=== PATIENT | male | born 1995 | race Two or more races ===

== ENCOUNTER 2024-05-29 16:49 | Day surgery (SDC) | payer BC, SELFPAY ==
[2024-05-29 16:50] VITALS: BMI 33.4
[2024-05-29 16:57] VITALS: BP 135/87; PULSE 93; RESP 16; TEMP 37.1; O2SAT 96
--- NOTE | 2024-05-29 17:02 | XR_ITS ---
Examination: CT abdomen with intravenous contrast CT pelvis with intravenous contrast 2-D coronal reconstructions 2-D sagittal reconstructions Date and time of exam:May 29, 2024 1858 hrs. Indications: Onset right lower abdominal pain beginning 2 days ago. CTDI: vol (mGy) 10.1 DLP: (mGycm) 690 Technique: Multiple axial sections of the abdomen and pelvis have been obtained. 64 slice high-resolution scanner used. 3 mm axial sections have been obtained, post intravenous injection 60 cc [id number] 2-D sagittal, coronal reconstructions obtained. Low dose protocols were performed. One or more of the following dose reduction techniques were used; automated exposure control, adjustment of the mA and/or KV according to patient size, use of iterative reconstruction technique. Findings: Diffuse fatty infiltration throughout the liver No gallstones No pancreatic or adrenal mass Spleen not enlarged No renal or ureteral calculi, no hydronephrosis Enlarged inflamed fluid-filled retrocecal appendix No pelvic abscess Contracted urinary bladder Impression: Acute appendicitis Negative for pelvic abscess
--- NOTE | 2024-05-29 17:02 | PD.EDRME ---
Rapid Medical Screening Exam RME Arrival date/time: 05/29/24 16:49 29-year-old male presents to the emergency department complaint of right lower quadrant abdominal pain and nausea ongoing for last 2 days Chief Complaint: Abdominal Pain Time Seen by Provider: 05/29/24 18:11 Vital signs: Vital Signs Temperature 98.7 F 05/29/24 16:57 Pulse Rate 93 05/29/24 16:57 Respiratory Rate 16 05/29/24 16:57 Blood Pressure 135/87 H 05/29/24 16:57 Pulse Oximetry (%) 96 05/29/24 16:57 Oxygen Delivery Method Room Air 05/29/24 16:57 RME Narrative: 29-year-old male abdominal pain X 12 hours q 3 months no association with food No nausea or vomiting
[2024-05-29 18:04] LABS: Basophils % (Auto) 0 % (0-2.5); Eosinophils # (Auto) 0.2 Thou/mm3 (0.0-0.5); Eosinophils % (Auto) 1 % (0-10); Hematocrit 44.4 % (41.0-53.0); Hemoglobin 15.6 g/dL (13.5-16.0); Immature Granulocytes % (Auto) 0 % (0-0); Immature Granulocytes Auto 0.04 Thou/mm3 (0.00-0.00); Lymphocytes # (Auto) 1.6 Thou/mm3 (1.0-4.8); Lymphocytes % (Auto) 12 % (10-50); Mean Corpuscular HGB Conc 35.1 g/dl (31.0-37.0); Mean Corpuscular Volume 88 fL (80-100); Monocytes # (Auto) 0.9 Thou/mm3 (0.0-0.8); Monocytes % (Auto) 7 % (0-12); Neutrophils # (Auto) 10.2 Thou/mm3 (1.8-7.7); Neutrophils % (Auto) 79 % (37-80); Nucleated Red Blood Cell % 0 /100 WBC (0); Platelet Count 312 Thou/mm3 (140-440); RDW Standard Deviation 40.1 fL (35.1-43.9); Red Blood Count 5.03 Miln/mm3 (4.50-5.90); White Blood Count 12.9 Thou/mm3 (3.8-10.6)
[2024-05-29 18:31] LABS: Alanine Aminotransferase 33 U/L (10-49); Albumin, Serum 5.1 gm/dL (3.5-5.0); Albumin/Globulin Ratio 1.7 (1.2-2.2); Alkaline Phosphatase 71 U/L (46-116); Anion Gap 9 (7-16); Aspartate Amino Transferase 22 U/L (0-34); BUN/Creatinine Ratio 8 Ratio (12-20); Blood Urea Nitrogen 8 mg/dL (9-23); Calcium 9.6 mg/dL (8.3-10.6); Calcium (Corrected) 9.6 mg/dL (8.5-10.1); Carbon Dioxide 24.8 mMol/L (20.0-31.0); Chloride 103 mMol/L (98-107); Estimated Creatinine Clearance 125.9 mL/min (>60); Glucose 89 mg/dL (74-106); Lipase 31 U/L (12-53); Osmolality,Calculated 271 (275-295); Potassium 3.6 mMol/L (3.4-5.1); Sodium 137 mMol/L (136-145); Total Protein 8.1 gm/dL (5.7-8.2); eGFR > 60 See Note
[2024-05-29 18:40] LABS: Collection Type, Urine Clean Catch; Squamous Epithelial Cell,Urine 0 /hpf (0-5)
[2024-05-29 18:47] LABS: Bilirubin,Urine Negative (Negative); Blood,Urine Negative (Negative); Clarity,Urine Clear (Clear/Hazy); Color,Urine Yellow (Lt Yel-Yel); Culture Indicated,Urine Not Indicated; Glucose, Urine Negative (Negative); Ketones,Urine Negative (Negative); Leukocyte Esterase,Urine Negative (Negative); Nitrite,Urine Negative (Negative); Protein,Urine 1+ (Neg - Trace); RBC,Urine 10 /hpf (0-3); Specific Gravity,Urine 1.037 (1.001-1.035); WBC,Urine 2 /hpf (0-5)
--- NOTE | 2024-05-29 19:12 | PD.EDABDPN ---
ED Abdominal Pain RME/HPI General Chief Complaint: Abdominal Pain Stated complaint: ABDOMINAL PAIN X1 DAY Time seen by provider: 05/29/24 18:11 Arrival date/time: 05/29/24 16:49 Limitations: no limitations RME / HPI RME / HPI narrative: 05/29/24 16:49 29-year-old male presents to the emergency department complaint of right lower quadrant abdominal pain and nausea ongoing for last [address] CALDERON MAIN ED EVALUATION: 29-year-old male coming to the emergency department constant right lower quadrant pain that started at midnight last night. The patient states that he normally will get this pain occasionally and it starts in his mid abdomen and then radiates down to the right side similar to today. The patient states it is a dull ache and it is currently a 2 out of 10 when I press on his abdomen. Patient denies pain improving or worse with food or movement. Denies back pain. Denies urinary complaints or scrotal swelling. No penile discharge. Patient states that he has some anorexia. No fevers. + Nausea. + Anorexia. No vomiting. This is similar to his previous episodes in the past. He states he will get this every 3 months. Related Data Allergies Allergy/AdvReac Type Severity Reaction Status Date / Time No Known Allergies Allergy Verified 05/29/24 16:51 Review of Systems Review of Systems Systems Reviewed: All systems reviewed, normal except as documented Narrative Review of Systems: GEN: No fever, no chills, + some anorexia (see HPI) EYES: No discharge, no visual changes, no pain HEENT: No ear pain, no congestion, no sore throat PULM: No shortness of breath, no cough, no congestion CV: No chest pain, no dyspnea on exertion, no palpitations GI: No nausea, no vomiting, no diarrhea, + right lower quadrant pain, no constipation : No frequency, no urgency and no dysuria MUSC/SKEL: No joint pain, no back pain SKIN: No rash PSYCH: No hallucinations, no depression HEME/LYMPH: No easy bleeding or bruising tendencies NEURO: No weakness, no headache Past Medical History Social History SMOKING STATUS: Never smoker SUBSTANCE USE: does not use ALCOHOL: Never ED Exam General Limitations: Present no limitations General appearance: Present alert and in no apparent distress Head Head exam: Present atraumatic, normocephalic and normal inspection Eye Eye exam: Present normal appearance, PERRL and EOMI ENT ENT exam: Present normal exam, normal oropharynx and mucous membranes moist Neck Neck exam: Present normal inspection, full ROM and trachea midline Chest Chest inspection: Present normal inspection and symmetric chest wall rise Respiratory Respiratory exam: Present normal lung sounds bilaterally Cardiovascular Cardiovascular exam: Present regular rate, normal rhythm and normal heart sounds Extremities Exam Extremities exam: Present normal inspection and full ROM Back Exam Back exam: Present normal inspection and full ROM Neurological Exam Neurological exam: Present alert, oriented X3 and CN II-XII intact Psychiatric Psychiatric exam: Present normal affect and normal mood Skin Skin exam: Present warm, dry, intact and normal color Course Quality Measures none Orders Category Date Time Status Patient Condition Routine Admission 05/29/24 20:[address] in Surgical Day Care Routine Admission 05/29/24 20:13 Active Activity as Tolerated Routine Care 05/29/24 20:13 Ordered COVID-19 Screening Questionnaire NOW Care 05/29/24 21:[address] Screening NOW Care 05/29/24 17:02 Active Consent [Obtain Written Consent For:] .NOW Care 05/29/24 20:12 Active DC Home When Criteria Met . Care 05/29/24 21:00 Active Decision to Admit X1 Care 05/29/24 21:05 Active Intake and Output QSHIFT Care 05/29/24 20:15 Ordered NPO NOW Care 05/29/24 20:13 Active Notify provider NEEDED Care 05/29/24 20:12 Active Diet NPO (NOW) Diet 05/29/24 20:[address] abdomen pelvis w con Stat Exams 05/29/24 17:02 Completed CBC Stat Lab 05/29/24 17:39 Completed Comprehensive Metabolic Panel Stat Lab 05/29/24 17:39 Completed Lipase Stat Lab 05/29/24 17:39 Completed UA, C/S IF [Urinalysis, C/S if Indicated] Stat Lab 05/29/24 18:30 Completed Acetaminophen Tab [Tylenol Tab] Med 05/29/24 20:12 Active 650 mg PO Q6H PRN Bupivacaine Mpf 0.5% [Sensorcaine-Mpf Inj 0.5%] Med 05/29/24 21:20 Discontinued 30 ml .ROUTE .STK-MED ONE Cefoxitin [Mefoxin Inj] Med 05/29/24 21:18 Discontinued 1 gm .ROUTE .STK-MED ONE Cefoxitin [Mefoxin Inj] Med 05/29/24 21:18 Discontinued 1 gm .ROUTE .STK-MED ONE Cefoxitin [Mefoxin] 2 gm Med 05/29/24 20:15 Active Sodium Chloride 0.9% (P) [Ns 0.9% (P)] 50 ml IV Q6HR Glycopyrrolate Inj [Robinul Inj] Med 05/29/24 21:17 Discontinued 1 mg .ROUTE .STK-MED ONE HYDROmorphone INJ [Dilaudid Inj] Med 05/29/24 21:00 Active 0.4 mg IV Q5M PRN HYDROmorphone INJ [Dilaudid Inj] Med 05/29/24 21:12 Discontinued 2 mg .ROUTE .STK-MED ONE KCL 20 mEq/L in D5-1/2NS Med 05/29/24 20:15 Active 20 meq in 1,000 ml IV 100 mls/hr Midazolam Inj [Versed Inj] Med 05/29/24 21:13 Discontinued 2 mg .ROUTE .STK-MED ONE Ondansetron Inj [Zofran Inj] Med 05/29/24 20:12 Active 4 mg IV Q6H PRN Ondansetron Inj [Zofran Inj] Med 05/29/24 21:00 Discontinued 4 mg IV X1 ONE Propofol Inj [Diprivan Inj] Med 05/29/24 21:12 Discontinued 200 mg IV .STK-MED ONE Propofol Inj [Diprivan Inj] Med 05/29/24 21:12 Discontinued 200 mg IV .STK-MED ONE Rocuronium Inj [Zemuron Inj] Med 05/29/24 21:13 Discontinued 100 mg .ROUTE .STK-MED ONE fentaNYL INJ [Sublimaze Inj] Med 05/29/24 21:12 Discontinued 100 mcg .ROUTE .STK-MED ONE Code Status Routine Oth 05/29/24 20:12 Ordered Oxygen Delivery PRN RT 05/29/24 21:00 Active Vital Signs Vital signs: Vital Signs Temperature 98.7 F 05/29/24 16:57 Pulse Rate 93 05/29/24 16:57 Respiratory Rate 16 05/29/24 16:57 Blood Pressure 135/87 H 05/29/24 16:57 Pulse Oximetry (%) 96 05/29/24 16:57 Oxygen Delivery Method Room Air 05/29/24 16:57 Abdominal Pain [facility] Narrative [facility] Narrative:: 29-year-old with minimal pain in the right lower quadrant TTP, no rebound but white count at 12.9. Liver function tests are normal with a total bili and lipase are normal. Urinalysis is interpreted and reviewed by me and appears to have some dehydration. 10 red cells without nitrates or blood. Doubt kidney stone or UTI. Otherwise patient is stable. IV is placed and patient is n.p.o. at this time pending likely admission to Dr. Tamez's service for surgery. Marisela Robles am scribing for and in the presence of Dr. Calderon. Patient data External records reviewed:: None (no previous visits) Clinical information provided by:: patient Social determinants that could affect healthcare access:: none Patient has the following chronic illnesses:: Denies any PMHx, surgeries, daily medications, or known allergies. How is presenting disease/condition affected by chronic disease/condition?: no chronic disease Evaluation data The following diagnostics were reviewed and interpreted by me:: lab results and radiology exam(s) Lab and/or radiology exams considered but not ordered:: none Interpretation Summary: See above under [facility] narrative. RADIOLOGY Procedure(s): CT abdomen pelvis w con Accession Number(s): [id number] cc: Jeison (SUGEY),Mike COAL SAMPLER; Vinayak Gilliland MD~ Examination: CT abdomen with intravenous contrast CT pelvis with intravenous contrast 2-D coronal reconstructions 2-D sagittal reconstructions Date and time of exam:May 29, 2024 1858 hrs. Indications: Onset right lower abdominal pain beginning 2 days ago. CTDI: vol (mGy) 10.1 DLP: (mGycm) 690 Technique: Multiple axial sections of the abdomen and pelvis have been obtained. 64 slice high-resolution scanner used. 3 mm axial sections have been obtained, post intravenous injection 60 cc [id number] 2-D sagittal, coronal reconstructions obtained. Low dose protocols were performed. One or more of the following dose reduction techniques were used; automated exposure control, adjustment of the mA and/or KV according to patient size, use of iterative reconstruction technique. Findings: Diffuse fatty infiltration throughout the liver No gallstones No pancreatic or adrenal mass Spleen not enlarged No renal or ureteral calculi, no hydronephrosis Enlarged inflamed fluid-filled retrocecal appendix No pelvic abscess Contracted urinary bladder Impression: Acute appendicitis Negative for pelvic abscess Dictated By: Vinayak Gilliland MD Medications / Prescriptions Medications or Prescriptions considered but not ordered:: none Medication administrations:: Medication Administration History Acetaminophen (Acetaminophen 325 Mg Tablet) 650 mg PO Q6H PRN PRN Reason: Fever >101.5 Stop: 06/28/24 20:11 Hydromorphone HCl (Hydromorphone Inj 2 Mg/Ml Vial) 0.4 mg IV Q5M PRN PRN Reason: PAIN SCALE 7-10 (Severe Stop: 05/29/24 23:01 Potassium Chloride/Dextrose/Sod Cl (Kcl 20 Meq/L In D5-1/2ns) 20 meq in 1,000 mls @ 100 mls/hr IV .Q10H MALIK Stop: 06/28/24 20:14 Cefoxitin Sodium 2 gm/ Sodium (Chloride) 50 mls @ 100 mls/hr IV Q6HR MALIK Stop: 06/05/24 20:14 Ondansetron HCl (Ondansetron Inj 2 Mg/Ml Inj 2 Ml) 4 mg IV Q6H PRN PRN Reason: NAUSEA OR VOMITING Stop: 06/28/24 20:11 Discontinued Medications Bupivacaine HCl (Bupivacaine Mpf 0.5% 30 Ml Vial) Confirm Administered Dose 30 ml .ROUTE .STK-MED ONE Stop: 05/29/24 21:21 Cefoxitin Sodium (Cefoxitin Sod Inj 1 Gm Vial) Confirm Administered Dose 1 gm .ROUTE .STK-MED ONE Stop: 05/29/24 21:19 Cefoxitin Sodium (Cefoxitin Sod Inj 1 Gm Vial) Confirm Administered Dose 1 gm .ROUTE .STK-MED ONE Stop: 05/29/24 21:19 Fentanyl Citrate (Fentanyl Cit Inj 50 Mcg/Ml Amp 2ml) Confirm Administered Dose 100 mcg .ROUTE .STK-MED ONE Stop: 05/29/24 21:13 Glycopyrrolate (Glycopyrrolate Inj 0.2 Mg/Ml Vial 5 Ml) Confirm Administered Dose 1 mg .ROUTE .STK-MED ONE Stop: 05/29/24 21:18 Hydromorphone HCl (Hydromorphone Inj 2 Mg/Ml Vial) Confirm Administered Dose 2 mg .ROUTE .STK-MED ONE Stop: 05/29/24 21:13 Midazolam HCl (Midazolam Inj 1 Mg/Ml Vial 2 Ml) Confirm Administered Dose 2 mg .ROUTE .STK-MED ONE Stop: 05/29/24 21:14 Ondansetron HCl (Ondansetron Inj 2 Mg/Ml Inj 2 Ml) 4 mg IV X1 ONE Stop: 05/29/24 21:01 Propofol (Propofol Inj 10 Mg/Ml Vial 20 Ml) Confirm Administered Dose 200 mg IV .STK-MED ONE Stop: 05/29/24 21:13 Propofol (Propofol Inj 10 Mg/Ml Vial 20 Ml) Confirm Administered Dose 200 mg IV .STK-MED ONE Stop: 05/29/24 21:13 Rocuronium [place] (Rocuronium Inj 10 Mg/Ml Vial 10 Ml) Confirm Administered Dose 100 mg .ROUTE .STK-MED ONE Stop: 05/29/24 21:14 see above Consultations Consultation(s) initiated? (list below): Yes Consultation #1 (Physician, Specialty, Details): Discussed test HPI, PMHx, lab, radiology results and/or management with Dr. Vinson. Will come evaluate the patient. Time: 19:50 Consultation #2 (Physician, Specialty, Details): Discussed test HPI, PMHx, lab, radiology results and/or management with Dr. Vinson. Will admit for further evaluation and management. Accepts patient for admission. Time: 21:00 Diagnosis Differential diagnosis abdominal pain: abdominal pain, acute appendicitis and other (appendicolith, GERD, gastritis, abscess) Most likely diagnosis given after review of the tests above:: Unspecified acute appendicitis Acute dehydration Admission Indicated Admission indicated?: indicated Admission Request Was there a request for admission?: Yes Admission Attestation Admission request attestation: Discussed case with [] from Hospitalist service regarding admission. Discussed patients ED course, exam findings, labs, and radiology results. The Hospitalist [agrees,declines] to accept the patient for admission. Disposition Plan Disposition Plan: Admit Discharge Plan Plan Patient Disposition: Admit Acute Care w/in Hospital Patient condition on transfer: Stable Problem List Clinical Impression: Unspecified acute appendicitis, Acute dehydration
--- NOTE | 2024-05-29 20:16 | PD.SURHP ---
HPI Date of Admission 05/29/2024 Chief Complaint Chief Complaint: Right lower quadrant abdominal pain with nausea and vomiting HPI 29-year-old male presented to the emergency department with acute onset of abdominal pain. His pain started yesterday and epigastric area. The pain was initially intermittent. Since earlier today his pain has become persistent, progressively worse and localized over right lower quadrant. He has had nausea and vomiting, but denies fever, chills, diarrhea, constipation or dysuria. He denies having similar symptoms in the past with no recent history of trauma. Review of Systems Constitutional Constitutional: Denies chills and Denies fever(s) Cardiovascular Cardiovascular: Denies chest pain Respiratory Respiratory: Denies cough Gastrointestinal Gastrointestinal: Reports abdominal pain, Reports nausea and Reports vomiting Genitourinary Genitourinary: Denies difficulty urinating Hematologic/Lymphatic Hematologic/Lymphatic: Denies easy bleeding and Denies easy bruising Past Medical History Surgical History OTHER SURGICAL HX: Arthroscopic knee surgery Social History SMOKING STATUS: Current some day smoker SUBSTANCE USE: does not use ALCOHOL: Current Meds Home Medications and Allergies Allergies Allergy/AdvReac Type Severity Reaction Status Date / Time No Known Allergies Allergy Verified 05/29/24 16:51 Exam Vital Signs Temp Pulse Resp BP Pulse Ox O2 Del Method 98.7 F 93 16 135/87 H 96 Room Air 05/29/24 16:57 05/29/24 16:57 05/29/24 16:57 05/29/24 16:57 05/29/24 16:57 05/29/24 16:57 Constitutional Constitutional: no acute distress Routine Respiratory Exam Respiratory: Present CTA bilaterally Routine Cardiovascular Exam Cardiovascular: Present RRR Routine Abdominal Exam Abdominal: Present soft, normoactive bowel sounds and tenderness (Right lower quadrant tenderness to palpation with guarding, no rebound tenderness or peritonitis at this time); Absent distended Results Results: Laboratory Laboratory results: results reviewed Results: Imaging CT scan - abdomen: report reviewed and image reviewed CT scan - pelvis: report reviewed and image reviewed Assessment & Plan Problem List (1) Unspecified acute appendicitis: Qualifiers: Acute appendicitis type: unspecified acute appendicitis type Qualified Code(s): K35.80 - Unspecified acute appendicitis Status: Acute Plan Keep NPO with IV fluids and IV antibiotics and plan for laparoscopic possible open appendectomy. Risks include but not limited to infection, bleeding, injury to bowel, surround neurovascular structures, abdominal sepsis and or abdominal abscess, need for further procedure and or operation discussed with the patient. Benefits alternatives explained to him, all his questions answered, he agreed and consented to proceed with the operation. Quality Measures Quality Measures none
--- NOTE | 2024-05-29 21:22 | PD.SUROPNT ---
Date of Procedure 05/29/24 Pre Op Diagnosis Acute appendicitis Post Op Diagnosis Acute appendicitis Procedure Laparoscopic appendectomy Findings Inflamed, dilated and hyperemic retrocecal appendix Procedure Description Patient was brought into the operating room in supine position. After administration of general endotracheal anesthesia, abdomen was prepped and draped in standard surgical manner. A Veress needle was inserted through the umbilicus and pneumoperitoneum was obtained up to 15 mmHg. The Veress needle was removed and a 5 mm umbilical incision was made. A 5 mm trocar was placed and laparoscopic camera was inserted. Under direct visualization a laparoscopic camera a 5 mm trocar placed in suprapubic region and a 10 mm trocar placed in left lower quadrant. The abdomen was inspected, the cecum was identified and followed until the appendix was identified. The appendix was noted to be inflamed, dilated and hyperemic without perforation. The appendix was retrocecal extending cephalad. A window was created between the appendix and mesoappendix and the appendix was divided near the appendix and cecal junction with blue Endo GUNNAR stapling device. The mesoappendix was divided with bhatti Endo GUNNAR stapling device. The appendix was placed inside an Endo Catch and removed from the abdomen utilizing left lower quadrant trocar site. Abdomen and pelvis copiously and thoroughly washed and irrigated, all the fluids were suctioned and the suctioned fluid returned clear. Hemostasis was adequate and satisfactory, staple lines were intact without bleeding or any leakage. Left lower quadrant trocar sites fascial defect was closed with 0 Vicryl using Endo closure device. Instruments and trocars removed, pneumoperitoneum was evacuated and the incisions closed with 4-0 Monocryl subcuticular fashion. Instruments, needles and sponge counts were reported to be correct ??2. Patient tolerated the procedure well, was extubated, breathing spontaneously and without difficulty and was transferred to postanesthesia care in stable condition. Anesthesia GETA and local Pathology / specimen Other (Appendix) Estimated Blood Loss 10 Condition Stable Disposition PACU Surgeon Duarte Tamez MD Surgical Staff Operation Date: 05/29/24 21:30 <No data on this case meets the specified criteria>
[2024-05-29] MEDS: CEFOXITIN 2 GM in SODIUM CHLORIDE 0.9% (P) 50 ML IV (21:30)
[2024-05-29 22:31] VITALS: BP 132/83; PULSE 92; RESP 14; TEMP 36.2; O2SAT 100
--- NOTE | 2024-05-29 22:31 | SUR.PHASEI ---
2231: Pt. AAOx4, vitals stable, breathing unlabored, no complaint of pain or nausea, x3 dermabond sites to ABD CDI, no active bleed noted, report received from Hugo CHILDERS and Dennis EASLEY.
[2024-05-29 22:36] VITALS: BP 119/78; PULSE 85; RESP 20; TEMP 36.2; O2SAT 94
[2024-05-29 22:41] VITALS: BP 123/81; PULSE 87; RESP 20; TEMP 36.2; O2SAT 93
[2024-05-29 22:46] VITALS: BP 123/72; PULSE 85; RESP 20; TEMP 36.2; O2SAT 95
[2024-05-29 23:01] VITALS: BP 125/74; PULSE 83; RESP 20; TEMP 36.4; O2SAT 95
--- NOTE | 2024-05-29 23:05 | SUR.PHASEI ---
2305: Pt. AAOx4, vitals stable, breathing unlabored, no complaint of pain or nausea, x3 dermabond to ABD CDI, no active bleed noted, report given to Erica EASLEY prior to transfer to room 381. Family made aware of transfer to room. Pt. tolerated sips of water well, pt. transferred to room with all personal belongings.
[2024-05-29] MEDS: KCL 20 mEq/L in D5-1/2NS 20 MEQ/1,000 ML BAG 100 MEQ IV (23:27)
[2024-05-29 23:33] VITALS: BMI 35.4
[2024-05-30] VITALS: BP 127/82; PULSE 84; RESP 19; TEMP 36.3; O2SAT 96
[2024-05-30] MEDS: ONDANSETRON INJ 2 MG/ML INJ 2 ML 4 MG IV (00:55)
[2024-05-30] MEDS: MORPHINE SULF INJ 10 MG/ML VIAL 3 MG IVP (00:55)
[2024-05-30 04:00] VITALS: BP 108/60; PULSE 72; RESP 18; TEMP 36.2; O2SAT 93
[2024-05-30] MEDS: HYDROcodone/APAP 5/325 TABLET 1 TAB PO ×2 (06:45→12:37)
[2024-05-30] MEDS: CEFOXITIN IV ×2 (07:14→12:37)
[2024-05-30] MEDS: SODIUM CHLORIDE 0.9% IV ×2 (07:14→12:37)
[2024-05-30 07:53] VITALS: BP 117/69; PULSE 72; RESP 18; TEMP 36.1; O2SAT 94
[2024-05-30] MEDS: DOCUSATE SOD 100 MG CAPSULE PO (09:18)
--- NOTE | 2024-05-30 11:46 | PD.SURPROG ---
Documentation for date of: 05/30/24 Subjective Subjective Narrative: Patient is seen and examined. His pain is improving. He is tolerating clear liquids. He is voiding and ambulating without difficulty Exam Vital Signs Temp Pulse Resp BP Pulse Ox O2 Del Method O2 Flow Rate 97.0 F 72 18 117/69 94 L Room Air 2 05/30/24 07:53 05/30/24 07:53 05/30/24 07:53 05/30/24 07:53 05/30/24 07:53 05/30/24 07:53 05/30/24 07:53 Constitutional Constitutional: no acute distress Routine Abdominal Exam Abdominal: Present soft, normoactive bowel sounds and tenderness (Mild left lower quadrant incisional tenderness. Incisions are clean, dry and intact); Absent distended Assessment & Plan Assessment Additional comments: Postop day #1 status post laparoscopic appendectomy Plan Will discharge home Procedures Procedures Laparoscopic appendectomy
[2024-05-30 12:00] VITALS: BP 105/66; PULSE 0; RESP 17; TEMP 36.6; O2SAT 93
--- NOTE | 2024-05-30 12:22 | PC.SS ---
SS met with patient regarding d/c plan. Pt is alert/oriented. Pt was admitted for Acute Appendicitis. Pt confirmed demographic and contact information is correct on facesheet. Pt is employed real time analyst. Pt resides with . Pt ambulates independently without assistance or DME. Pt is ok with all ADLs. Patient?s pharmacy of choice is. Pt named her mother, Earnest Monaco medical decision maker if she is unable. Patient?s choice is to return home upon d/c. Pt has surgery yesterday and had his appendix removed. D/C plan: Return home Next of Kin: Earnest Monaco, mom, phone# [phone] PCP: Dr. Daniel Boyd Address: Correct on facesheet
[2024-05-30 12:23] VITALS: PULSE 81; RESP 16; RESP 93
--- NOTE | 2024-05-30 13:35 | PC.NURSE ---
Pt. has requested a work off notice due to the lifting limitation after surgery, Dr. Tamez been contacted. Per pt. cab moss picker the work off notice from DR. Mora office.
== END 2024-05-30 14:15 | disposition home or self-care (01) ==
LOC: SERX 20:36 → S2EX 20:57 → S3SX 05-30 11:47
PROVIDERS: Nurse Practitioner Primary Care; Emergency Provider Emergency Medicine; PCP Family Medicine; Referring Provider Surgery; Visit Provider Surgery
PROC: 0DTJ4ZZ Resection of Appendix, Percutaneous Endoscopic Approach (ICD-10-PCS; CPT 44970; principal; 2024-05-29 21:30)
DX: K35.890 Other acute appendicitis without perforation or gangrene (principal); E86.0 Dehydration; F17.200 Nicotine dependence, unspecified, uncomplicated
CPT/HCPCS: 44970; 36415; 74177; 80053; 81001; 83690; 85025; 99285; A4216; A4217; A4649; J0131; J0694; J1885; J2250; J2270; J2405; J2704; J3010; J3480; J3490; J7050; Q9967; A9270; J1596